=== PATIENT | male | born 1955 | race Caucasian/White ===

== ENCOUNTER → 2020-05-10 | Outpatient (CLI) | payer MEDICARE, OTHER ==
[~2020-05-10] MED LIST: ASPIRIN CHEWABL81 MG PO; CETIRIZINE HCL10 MG PO; DONEPEZIL HCL10 MG PO; FENOFIBRATE160 MG PO; FLONASE 0.05% N16 GM; FUROSEMIDE20 MG PO; GABAPENTIN800 MG PO; GLUCOPHAGE500 MG PO; HYDROCODON-ACE1 EAC6 PO; IBU800 MG PO; IMDUR ER TAB 3030 MG PO; LACTULOSE10 GM/151 PO; LIORESAL TAB 1010 MG PO; METOPROLOL SUCC25 MG PO; MONTELUKAST SOD10 MG PO; NORTRIPTYLINE H10 MG PO; OMEPRAZOLE20 MG PO; SERTRALINE HCL100 MG PO; SYMBICORT 16010.2 GM INH; TRAMADOL HCL50 MG PO; VALIUM 10 MG TA10 MG PO; VENTOLIN HFA 66.7 GM INH; VOLTAREN100 GM TP; WELLBUTRIN XL300 MG PO
== END ==
LOC: CT 10:50
DX: G91.2 (Idiopathic) normal pressure hydrocephalus (principal)
CPT/HCPCS: 70450

== ENCOUNTER → 2021-01-01 | Outpatient (CLI) | payer MEDICARE, OTHER | LOC: KOH-I 11:23 | DX: G91.0 Communicating hydrocephalus (principal); Z98.2 Presence of cerebrospinal fluid drainage device | CPT/HCPCS: 70450 ==